=== PATIENT | male | born 1960 | race Caucasian/White ===

== ENCOUNTER 2016-10-21 09:26 | Outpatient (CLI) | payer OTHER | END 2016-10-21 23:00 | LOC: LAB SRH 09:26 | DX: E11.65 Type 2 diabetes mellitus with hyperglycemia (principal); E78.2 Mixed hyperlipidemia; E66.01 Morbid (severe) obesity due to excess calories | CPT/HCPCS: 90047; 90074; 91286; 92690; 92710; 92720; 92860 ==